=== PATIENT | female | born 1950 | race Caucasian/White ===

== ENCOUNTER 2019-09-21 14:03 | Emergency (ER) | payer OTHER, MEDICAID ==
[~2019-09-21] VITALS: Ht 162.6 cm; Wt 37.2 kg
[2019-09-21 14:06] VITALS: BP 87/50
--- NOTE | 2019-09-21 14:30 | NUR ---
VIVI OLIVEROS INSERTED IV NEEDLE AND COLLECTED BLOOD SAMPLE.
--- NOTE | 2019-09-21 14:34 | NUR ---
20g iv placed to rt ac, blood drawn at this time.
--- NOTE | 2019-09-21 14:35 | NUR ---
DR YAP AT BEDSIDE EVALUATING PT.
--- NOTE | 2019-09-21 14:40 | NUR ---
IBA FROM [facility] C/O GENERALIZED WEAKNESS, LOW HEMOGLOBIN 6.8. AAOX4 . MED HX: COLON CANCER, ANEMIA, G TUBE, SHIRLEY CATH, COLOSTOMY. O2 SAT 99% & BP 87/50 AT THIS TIME,
[2019-09-21] MEDS ORDERED: fentaNYL 0.05 MG/ML VIAL IVP ONE ×2 (14:45→17:35)
[2019-09-21 15:00] LABS: BASOPHILS # (AUTO) 0.2 K/uL (0.00-0.22); BASOPHILS % (AUTO) 1.2 % (0.0-2.0); EOSINOPHILS # (AUTO) 0.2 K/uL (0-0.4); EOSINOPHILS % (AUTO) 1.3 % (0.0-4.0); HEMATOCRIT 22.9 % (36-48); HEMOGLOBIN 7.2 g/dL (12.0-16.0); LYMPHOCYTES # (AUTO) 1.1 K/uL (2.5-16.5); MEAN CORPUSCULAR HEMOGLOBIN 23 pg (27-31); MEAN CORPUSCULAR HGB CONC 31 g/dL (33-37); MEAN CORPUSCULAR VOLUME 74.7 fL (80-94); MONOCYTES % (AUTO) 7.7 % (1.7-9.3); NEUTROPHILS # (AUTO) 10.9 K/uL (1.8-7.7); PLATELET COUNT (AUTO) 962 K/uL (140-450); RED BLOOD CELL COUNT(AUTO) 3.06 MIL/uL (4.20-5.40); RED CELL DISTRIBUTION WIDTH 19.8 % (11.6-13.7); WHITE BLOOD COUNT (AUTO) 13.4 K/uL (4.8-10.8)
[2019-09-21 15:20] LABS: ALBUMIN 1.1 g/dL (3.4-5.0); ANION GAP 8.6 (8-16); CARBON DIOXIDE 29.8 mmol/L (21-32); CREATININE 0.8 mg/dL (0.6-1.3); POTASSIUM 4.4 mmol/L (3.5-5.1); TOTAL BILIRUBIN 0.1 mg/dL (0.0-1.0)
--- NOTE | 2019-09-21 17:27 | NUR ---
TURN PT TO HER SIDE WITH VIVI ELLIOTT AT BEDSIDE.
[2019-09-21] MEDS ORDERED: fentaNYL 0.05 MG/ML VIAL ONE (17:33)
--- NOTE | 2019-09-21 18:10 | NUR ---
pt comfortable in bed eating sandwich with stable v/s . side rails up x2 and lock.
[2019-09-21 18:26] LABS: LYMPHOCYTES % (AUTO) 8.4 % (20.5-51.1); NEUTROPHILS % (AUTO) 81.4 % (42.2-75.2)
--- NOTE | 2019-09-21 19:10 | NUR ---
gave report to agnes cross .pt with stable vs , consent signed for bt.
--- NOTE | 2019-09-21 19:11 | NUR ---
RECEIVED REPORT FROM VIVI CONTRERAS. ASSUMED CARE AT THIS TIME. PT SEATED UPRIGHT IN BED, 02 SAT AT 100%. PT TACHYCARDIAC AT 110. NO C/O PAIN AT THIS TIME.
[2019-09-21] MEDS ORDERED: ACETAMINOPHEN 325 MG TAB PO ONE (20:00)
[2019-09-21] MEDS ORDERED: ACETAMINOPHEN 325 MG TAB ONE (20:02)
--- NOTE | 2019-09-21 20:05 | NUR ---
LOW GRADE FEVER OF 100.1 PRIOR TO BLOO TRANFUSION. ERMD MADE AWARE AND VERBAL ORDER FOR TYLENOL GIVEN. ORDER CARRIED OUT.
--- NOTE | 2019-09-21 20:08 | NUR ---
Consent signed per PT agreeing to administration of blood. Blood has been type and crossmatched. Blood sent from blood bank. Information on unit of blood checked against patient wristband at bedside by two nurses. All information matches. Patient or responsible constitution party informed of potential complications associated with blood transfusion. Informed of possible transfusion reaction symptoms. Aware of need to notify nurse at once of itching, shortness of breath, flushing, feeling of impending doom, or other symptoms not previously present. Vital signs taken within 5 minutes prior to initiation of transfusion. RN will remain with patient for first 15 minutes of transfusion at which time vital signs will be re-assessed.
--- NOTE | 2019-09-21 20:22 | NUR ---
VSS. PT DENIES ANY ITCHING, SHORTNESS OF BREATH, FLUSHING S/P TRANSFUSION START. NO ERYTHEMA NOTED TO IV SITE. VSS AT THIS TIME. WILL CONTINUE TO MONITOR.
--- NOTE | 2019-09-21 20:28 | NUR ---
INFUSION RATE INCREASED TO 100ML/HR. PT TOLERATING WELL. VSS.
--- NOTE | 2019-09-21 20:40 | NUR ---
PT CONTINUE WITH NO ADVERSE REACTIONS FROM BLOOD TRANSFUSION. WILL CONTINUE TO MONITOR.
--- NOTE | 2019-09-21 21:59 | NUR ---
PT CONTINUE WITH NO ADVERSE REACTIONS FROM BLOOD TRANSFUSION. PT REPORTS 7/10 PAIN LOCATED TO BACK AND LEG. ERMD NOTIFIED. WILL CONTINUE TO MONITOR.
[2019-09-21] MEDS ORDERED: MORPHINE SULFATE 4 MG/ML SYR IVP ONE (22:00)
--- NOTE | 2019-09-21 23:05 | NUR ---
BLOOD TRANSFUSION COMPLETE. NO ADVERSE REACTIONS NOTED DURING OR AFTER TRANSFUSION. WILL CONTINUE TO MONITOR.
--- NOTE | 2019-09-21 23:19 | NUR ---
S/W MAXIMO AT [facility] TO NOTIFY THAT PATIENT WILL BE RETURNING TO FACILITY.
--- NOTE | 2019-09-21 23:42 | NUR ---
PT FOR D/C PER DR DE LEON ORDER. [facility] WAS CALLED [phone] SPOKE TO DARCY THOMSON AT [facility]. PT WILL GO TO RM 28C. ON PROCESS TO CALL AMBULANCE FOR TRANSFER.
--- NOTE | 2019-09-22 00:53 | NUR ---
Pt reporting back itching, dr. willingham notified and will place order for benadryl.
--- NOTE | 2019-09-22 01:06 | NUR ---
PT SEEN WITH EYES CLOSED. VISIBLE CHEST RISE AND FALL NOTED. SAFETY MEAUSRES IN PLACE. WILL CONTINUE TO MONITOR.
--- NOTE | 2019-09-22 03:30 | NUR ---
PT C/O PAIN. ERMD MADE AWARE.
[2019-09-22] MEDS ORDERED: MORPHINE SULFATE 4 MG/ML SYR IVP ONE ×3 (04:15→07:30)
--- NOTE | 2019-09-22 04:31 | NUR ---
PT MEDICATED FOR BACK PAIN. PT REPOSTIONED FOR COMFORT. WILL CONTINUE TO MONITOR.
--- NOTE | 2019-09-22 05:54 | NUR ---
400ML OF YELLOW URINE DRAINED FROM SHIRLEY COLLECTTION BAG. PT SEATED IN HIGH FOWER'S POSTION FOR COMFORT. SAFETY MEAUSRES IN PLACE. WILL CONTINUE TO MONITOR.
--- NOTE | 2019-09-22 06:51 | NUR ---
PT SEATED UPRIGHT IN BED WITH EYES CLOSED, VISIBLE CHEST RISE AND FALL NOTED. SAFETY MEASURES IN PLACE. WILL CONTINUE TO MONITOR.
--- NOTE | 2019-09-22 07:11 | NUR ---
REPORT GIVEN TO VIVI JOHNSON. TRANSFER OF CARE AT THIS TIME.
[2019-09-22 07:19] VITALS: BP 110/58
--- NOTE | 2019-09-22 07:19 | NUR ---
PT UPRIGHT IN [facility] C/O PELVIC PAIN; STATES ITS CHRONIC AND SHE USUALLY RECEIVES MORPHINE---MD NOTIFIED PT AWARE SHE IS TO RETURN TO HER HOME--AWAITS MEDICAL TRANSPORT
--- NOTE | 2019-09-22 08:13 | NUR ---
MEDICAL TRANSPORT PICKED UP PT FROM ROOM 2--PT WAS HANDED BACK HER PHONE [employer] ENGINEER FROM [place] ---PT THANFUL, DENIES PAIN AT THIS TIME---STATED LAST SHOT OF MORPHINE HELPED. DC INSTRUCTIONS GIVEN TO HER AND EMT'S. KUMAR SANCHEZ NOTIFIED
== END 2019-09-22 08:13 ==
LOC: MED 14:03
DX: D63.8 Anemia in other chronic diseases classified elsewhere (principal); E87.71 Transfusion associated circulatory overload; Z88.0 Allergy status to penicillin; Z85.9 Personal history of malignant neoplasm, unspecified
CPT/HCPCS: 36415; 80053; 81025; 85025; 86886; 86900; 86901; 86920; 96374; 96375; 96376; 99284; J2270; J3010; P9016; Q0163; 99283